=== PATIENT | male | born 1935 | race Caucasian/White ===

== ENCOUNTER 2021-02-16 16:40 | Emergency (ER) | payer MEDICARE | END 2021-02-16 17:33 | disposition home or self-care (01) | LOC: NAV ERS 16:40 | DX: K56.41 Fecal impaction (principal); I25.2 Old myocardial infarction; N40.0 Benign prostatic hyperplasia without lower urinary tract symptoms; I10 Essential (primary) hypertension; Z98.890 Other specified postprocedural states; Z79.82 Long term (current) use of aspirin; Z79.899 Other long term (current) drug therapy | CPT/HCPCS: 99283 ==

== ENCOUNTER 2021-06-27 00:52 | Emergency (ER) | payer MEDICARE ==
[2021-06-27 01:44] LABS: #Basophils 0.1 thou/uL (0.0-0.2); #Eosinphils 0.7 thou/uL (0.0-0.7); #Lymphocytes 1.4 thou/uL (1.20-3.40); #Monocytes 0.6 thou/uL (0.11-0.59); #Neutrophils 6.1 thou/uL (1.40-6.50); %Basophils 0.9 % (0.0-1.0); %Eosinophils 7.8 % (0.0-10.0); %Lymphocytes 15.9 % (21.0-51.0); %Monocytes 6.6 % (0.0-10.0); %Neutrophils 68.8 % (42.0-75.0); Hemoglobin 13.5 g/dL (14.0-18.0); Mean Corpuscular HGB CONC 32.6 g/dL (32.0-36.0); Mean Platelet Volume 6.3 fL (7.4-10.4); Platelet Count 239 thou/uL (130-400); RBC Distribution Width 11.7 % (11.5-14.5); Red Blood Cell (RBC) Count 4.51 mill/uL (4.70-6.10); White Blood Cell (WBC) Count 8.9 thou/uL (4.8-10.8)
[2021-06-27 02:01] LABS: ALT (SGPT) 19 U/L (8-55); AST (SGOT) 19 U/L (5-34); Albumin 4.5 g/dL (3.4-4.8); Alkaline Phosphatase 72 U/L (40-110); Anion Gap 16 mmol/L (10-20); BUN (Urea Nitrogen) 33 mg/dL (8.4-25.7); Bilirubin, Total 0.5 mg/dL (0.2-1.2); Calc. Creatinine Clearance 0 mL/min (70-130); Calcium 10.2 mg/dL (7.8-10.44); Carbon Dioxide 28 mmol/L (23-31); Chloride 100 mmol/L (98-107); Globulin 3.1 g/dL (2.4-3.5); Glucose 174 mg/dL (83-110); Lipase 15 U/L (8-78); Potassium 4.8 mmol/L (3.5-5.1); Protein, Total 7.6 g/dL (5.8-8.1); Sodium 139 mmol/L (136-145)
[2021-06-27] MEDS ORDERED: Sodium Chloride 0.9% 1,000 ML ONE ×2 (02:28→04:27)
[2021-06-27] MEDS ORDERED: Ondansetron PF 4 MG/2 ML Vial ONE ×2 (02:28→05:17)
[2021-06-27] MEDS ORDERED: Morphine 4 MG/ML VIAL ONE ×2 (02:28→05:27)
[2021-06-27] MEDS ORDERED: Lidocaine Viscous Sol 2% 15 ml UD Cup ONE (04:33)
[2021-06-27 04:37] LABS: Bilirubin Negative (Negative); Blood, Urine Negative (Negative); Clarity Clear (Clear); Glucose, Urine (Dipstick) Negative (Negative); Ketone, Urine Negative (Negative); Leukocyte Trace (Negative); Nitrite Negative (Negative); Protein, Urine (Dipstick) Negative (Neg-Trace); Specific Gravity, Urine 1.015 (1.005-1.030); Urobilinogen 0.2 mg/dL (Less than 2); pH, Urine 5.5 (5.0-9.0)
[2021-06-27 04:38] LABS: Bacteria/HPF None Seen HPF (None Seen); RBC/HPF None Seen HPF (0-3); Squamous Epithelial 0-3 HPF (0-3); WBC/HPF 0-3 HPF (0-3)
[2021-06-27 05:08] LABS: SARS-CoV-2 NAA Rapid Test Not Detected (NotDetected)
[2021-06-27] MEDS ORDERED: Iopamidol 370 76% 100 ML VIAL ONE (09:00)
== END 2021-06-27 06:35 | disposition short-term general hospital (02) ==
LOC: NAV ERS 00:52
DX: K56.609 Unspecified intestinal obstruction, unspecified as to partial versus complete obstruction (principal); I10 Essential (primary) hypertension; I25.2 Old myocardial infarction; Z20.822 Contact with and (suspected) exposure to COVID-19; Z79.82 Long term (current) use of aspirin; Z79.899 Other long term (current) drug therapy
CPT/HCPCS: 74018; 74177; 80053; 83690; 85025; 93005; U0002; 81003; 81015; 96374; 96375; 96376; J2270; J2405; J7050; Q9967